=== PATIENT | male | born 1985 | race Caucasian/White ===

== ENCOUNTER 2019-02-19 12:39 | Outpatient (CLI) | payer OTHER ==
--- NOTE | 2019-02-19 15:39 | RAD ---
2 views lumbar spine: 02/19/2019 COMPARISON: HISTORY: Low back pain, prior lumbar spine surgery FINDINGS: Bilateral L5 and S1 pedicle screws are present with vertically oriented interlocking rods. There are clips in the right upper quadrant suggesting prior cholecystectomy. There is anterolisthesis of L5-S1 measuring 1.3 cm. No radiographic evidence of hardware failure. IMPRESSION: Posterior fusion at the L5-S1 level. 1.3 cm anterolisthesis of L5 on S1.
== END 2019-02-19 12:40 | disposition home or self-care (01) ==
LOC: TBSIIMAG 12:39
PROVIDERS: ATTEND Neurological Surgery
DX: M54.5 Low back pain (principal); M43.17 Spondylolisthesis, lumbosacral region; Z98.1 Arthrodesis status
CPT/HCPCS: 72100

== ENCOUNTER 2019-03-28 15:05 | Outpatient (CLI) | payer OTHER ==
--- NOTE | 2019-03-28 15:21 | RAD ---
XR Lumbar Spine 2 Or 3 View: 03/28/2019 12:00 AM CLINICAL INDICATION: Lumbar conjoint root COMPARISON: 02/19/2019 FINDINGS: Accentuated lumbar lordosis is present. There is posterior fusion of L5-S1. Grade I spondylolisthesis at L5-S1 is grossly stable. Hardware is similar in appearance. Exam is otherwise stable.Cholecystectomy clips. IMPRESSION: 1. Stable grade I spondylolisthesis of the postoperative, L5-S1 level..
== END 2019-03-28 15:06 | disposition home or self-care (01) ==
LOC: BICRAD 15:05
PROVIDERS: ATTEND Neurological Surgery
DX: Q06.2 Diastematomyelia (principal); M43.17 Spondylolisthesis, lumbosacral region; Z98.1 Arthrodesis status
CPT/HCPCS: 72100

== ENCOUNTER 2019-06-12 13:25 | Outpatient (CLI) | payer OTHER ==
--- NOTE | 2019-06-12 15:06 | RAD ---
LUMBAR SPINE FOUR VIEWS: HISTORY: Lumbar radiculopathy. COMPARISON: None. FINDINGS: AP, lateral neutral, lateral flexion and lateral extension views of the lumbar spine demonstrate five lumbar type vertebrae. There are bilateral transpedicular screws at L5 and S1 without perihardware lucency. Preserved disc space heights. In the neutral position 8.1 mm of anterolisthesis of L5 upon S1. Upon flexion 8.5 mm of anterolisthesis of L5 upon S1. Upon extension 5.8 mm of anterolisthesis of L5 upon S1. IMPRESSION: Fusion changes and spondylolisthesis of the lumbosacral junction as described above. Transcribed Date/Time: 06/12/2019 3:40 PM
[2019-06-12] MEDS ORDERED: Magnevist 469MG/ML 20 ML VIAL ONE (15:13)
--- NOTE | 2019-06-12 15:15 | MRI ---
MRI LUMBAR SPINE WITH AND WITHOUT CONTRAST: HISTORY: Lumbar radiculopathy. Lumbar fusion. COMPARISON: None. FINDINGS: Bilateral transpedicular screws at L5 and S1 with associated metallic susceptibility artifact. There is appropriate T1 marrow signal intensity of the lumbar vertebrae. Lumbar spine vertebral body height is maintained. No fracture. No significant STIR hyperintensity to suggest vertebral body edema or ligamentous injury. Appropriate signal intensity of the visualized paraspinal muscles and solid organs. Post contrast images do not demonstrate any abnormal enhancement with regard to the vertebral bodies or the contents of the thecal sac, including the cauda equina and the conus medullaris. There is enhancing scar tissue at the surgical site, predominantly in the dorsal subcutaneous fat and midline paraspinal region. The conus medullaris terminates at the inferior aspect of T12. Spondylolisthesis: L4-L5: 3.2 mm of retrolisthesis. L5-S1: 6.6 mm of anterolisthesis. T12-L1: Adequate disc hydration. No significant central canal stenosis or significant neural foramina l narrowing. L1-L2: Adequate disc hydration. No significant central canal stenosis or significant neural foraminal narrowing. L2-L3: Adequate disc hydration. No significant central canal stenosis or significant neural foraminal narrowing. L3-L4: Adequate disc hydration. No significant central canal stenosis or significant neural foraminal narrowing. L4-L5: Disc desiccation with mild loss of disc space height. Broad-based disc osteophyte complex with a central and left subarticular component. Narrowing of the left subarticular zone with minimal contact upon the traversing left L5 nerve root. No significant stenosis of the thecal sac. Mild bilat eral neural foraminal narrowing. L5-S1: There is T2 and STIR hyperintensity involving the posterior half of the disc with associated e nhancement suggesting an annular fissure. Broad-based disc bulge does not cause any mass effect upon the thecal sac. There is no significant central canal stenosis. Mild to moderate bilateral conchis inal narrowing is suspected. Evaluation is limited due to metallic susceptibility artifact. IMPRESSION: 1. Lumbar fusion at L5-S1 with spondylolisthesis at L4-L5 and L5-S1, as described above. 2. Minimal central/left subarticular disc bulge at L4-L5. 3. Annular fissure at L5-S1. Transcribed Date/Time: 06/12/2019 3:46 PM
== END 2019-06-12 13:26 | disposition home or self-care (01) ==
LOC: TBSIIMAG 13:25
PROVIDERS: ATTEND Neurological Surgery
DX: M51.16 Intervertebral disc disorders with radiculopathy, lumbar region (principal); M43.17 Spondylolisthesis, lumbosacral region; M43.16 Spondylolisthesis, lumbar region; Z98.1 Arthrodesis status
CPT/HCPCS: 72110; 72158; A9579